=== PATIENT | male | born 1980 | race Caucasian/White ===

== ENCOUNTER 2023-12-24 14:04 | Emergency (ER) | payer OTHER, SELFPAY ==
[2023-12-24 14:11] VITALS: BP 130/91
[2023-12-24 14:54] LABS: Troponin I < 0.012 ng/ml
[2023-12-24 14:59] LABS: ALT (SGPT) 31 U/L (0-50); AST (SGOT) 29 U/L (17-59); Albumin 4.7 g/dl (3.5-5.0); Alkaline Phosphatase 50 U/L (38-126); Blood Urea Nitrogen 18 mg/dl (9-20); Calcium 9.7 mg/dl (8.4-10.2); Carbon Dioxide 26 mmol/L (22-30); Chloride 103 mmol/L (98-107); Glucose 103 mg/dl (70-99); Potassium 3.7 mmol/L (3.5-5.1); Sodium 138 mmol/L (135-145); Total Bilirubin 2.8 mg/dl (0.2-1.3); Total Protein 7.6 g/dl (6.3-8.2)
[2023-12-24 15:05] LABS: eGFR 55.17
[2023-12-24 16:25] VITALS: BP 139/84
[2023-12-24 16:40] VITALS: BMI 23.8
[2023-12-24 16:43] LABS: % Basophils 0.3 % (0-2); % Eosinophils 0.1 % (0-6); % Immature Granulocytes 0.3 % (0-0.5); % Monocytes 4.9 % (1.7-9.3); % Neutrophils 82.4 % (42.2-75.2); Absolute Lymphocytes 1.3 10^3/uL (1.2-3.4); Absolute Monocytes 0.5 10^3/uL (0.1-0.6); Absolute Neutrophils 8.9 10^3/uL (1.4-6.5); Hematocrit 42.6 % (39.0-52.0); Hemoglobin 15.2 g/dL (13.0-18.0); Mean Corp Hgb Conc. 35.7 g/dL (33.0-37.0); Mean Corpuscular Hgb 30.2 pg (27.0-31.0); Mean Corpuscular Volume 84.5 fL (80.0-94.0); Mean Platelet Volume 9.9 fL (7.4-10.4); Nucleated Red Blood Cells % 0 % (-); Platelet Count 279 10^3/uL (130-400); Red Blood Cell Count 5.04 10^6/uL (4.70-6.10); Red Cell Dist. Width 12.3 % (11.5-14.5); White Blood Cell Count 10.8 10^3/uL (4.8-10.8)
[2023-12-24 17:29] VITALS: BP 124/81
[2023-12-24 18:00] VITALS: BP 134/87
[2023-12-24 18:01] LABS: Troponin I < 0.012 ng/ml
--- NOTE | 2023-12-24 18:15 | ED.GENMED ---
History of Present Illness
General
Chief Complaint: Chest Pain
Source: patient and spouse
Time Seen by Provider: 12/24/23 16:06
History of Present Illness
History of Present Illness:
43-year-old male who presents after he developed chest pain palpitations at home. Does not that they took about this earlier and then it was delayed till he got the gym so he then took a 5-hour energy. He worked out without any problem. He then
got home and developed and experienced sharp chest pain just to the left of his lower sternum. He states he also had some palpitations and feeling his heart was racing. After getting a cold shower he developed the same sharp pain in his back. All
the symptoms last about 2 hours and resolved. He denies any symptoms while exercising. He states he did cardiac no as well as did weight lifting. The patient denies recent travel. No leg swelling or leg pain. No hemoptysis. No other injury.
No rash. Symptoms of all resolved. He states he has had some reflux in the past. He did have some belching but is not sure if it is GI related. Has a history of crews Parkinson's White that was treated in
Past History
Past History
ED Past Medical History: Other (WPW)
Social History
Tobacco: Non-smoker
Personal:
Family History
Family History: Negative Early CAD or Sudden
Phy Exam
Physical Exam
Physical Exam:
CONSTITUTIONAL Patient alert and oriented to person, place and time. Well-appearing. Vital signs reviewed.
HEAD atraumatic, normocephalic.
EYES eyelids normal to inspection, Extraocular muscles intact, Conjunctiva normal, Sclera normal.
NECK normal range of motion, Trachea midline, no jugular venous distention.
RESPIRATORY CHEST No respiratory distress noted, Chest expansion equal, Bilateral breath sounds clear.
CARDIOVASCULAR regular rate and rhythm, Heart sounds normal.
ABDOMEN abdomen nontender, Bowel sounds normal. No distention.
BACK normal inspection, no obvious deformities
UPPER EXTREMITY range of motion normal, Motor strength normal, no cyanosis, no edema.
LOWER EXTREMITY range of motion normal, Motor strength normal, no cyanosis, no edema.
NEURO Speech normal, No focal motor deficits, [place] coma scale 15, Memory normal, Cranial Nerves intact to screening exam.
SKIN skin warm, dry, and normal in color.
PSYCHIATRIC patient oriented to person place and time, Normal affect.
Scores
Heart Score for Chest Pain Patients
STEMI patient?: No
History: Slightly or Non-Suspicious
ECG: Normal
Age: </= 45 years
Risk Factors: No Risk Factors
Troponin: </= Normal Limit
Heart Score for Chest Pain Patients: 0
Heart Score Risk: 2.5% MACE over next 6 weeks
Course
Orders/Labs/Results
Orders:
Orders
12/24/23 14:06
EKG [Electrocardiogram (*1)] Urgent
Reason for Study: Chest Pain
EKG- Treatment ONCE
12/24/23 14:22
Comprehensive Metabolic Panel Urgent
Troponin I Urgent
12/24/23 16:31
CR Chest - 2 Views Urgent
Comment:
Reason For Exam: L cp
12/24/23 16:34
Complete Blood Count/With Diff Urgent
Troponin I Urgent
Abnormal Lab Results
12/24/23 12/24/23
14:22 16:34
Absolute Neuts (auto) 8.9 H 10^3/uL
(1.4-6.5)
Neutrophils % 82.4 H %
(42.2-75.2)
Lymphocytes % 12.0 L %
(20.5-51.1)
Creatinine 1.6 H mg/dL
(0.7-1.3)
Glucose 103 H mg/dl
(70-99)
Total Bilirubin 2.8 H mg/dl
(0.2-1.3)
12/24/23 16:34
12/24/23 14:22
Vital Signs
Initial and Last Documented VS:
Initial Vital Signs
Temp Pulse Resp BP Pulse Ox
98.1 F 95 18 130/91 97
12/24/23 14:11 12/24/23 14:11 12/24/23 14:11 12/24/23 14:11 12/24/23 14:11
Last Documented Vital Signs
Temp Pulse Resp BP Pulse Ox
98.1 F 76 14 134/87 97
12/24/23 14:11 12/24/23 18:00 12/24/23 18:00 12/24/23 18:00 12/24/23 18:00
MDM/Problems Addressed
MDM/Problems Addressed:
Atypical chest pain
*Radiology
Radiology exam reviewed: all reviewed NAD by ED Provider
*Pulse Oximetry
Patient hypoxic: no
*EKG
Interpreted by ED Provider?: Yes
Rate: normal
Rhythm: sinus
[place]: normal axis
Interval: normal interval
QRS Pattern: normal QRS
Ischemia: no ischemia
*Flight Coordinator Interpretation
Rate: normal
Interpretation: normal
Rhythm: sinus
*Critical Care Note
Total Time (30-74mins, 75-104mins- exclusive of procedures): Not Applicable
Data Reviewed
Source: patient
Prescriptions/Medications Considered But Not Given:
Consider nitroglycerin if pain has resolved a low suspicion for ACS
Patient Management
Escalation/DeEscalation of care consider admission/obs:
Patient appears quite well. Chest x-ray and EKG normal. Repeat troponin normal. Symptoms very atypical no symptoms with exercise. Recommended the avoidance of preworkout and advised outpatient follow-up
ED Attending Note
-
Portions of this chart may have been created with voice recognition software.� Occasional wrong word or��sound alike� substitutions may have occurred due to the inherent limitations of voice recognition software.
Discharge Plan
Departure
Patient Disposition: Home (Routine Discharge)
Date of Disposition: 12/24/23
Time of Disposition: 18:15
Patient with high blood pressure during this ER visit?: No
Discharge Problem:
Atypical chest pain
Instructions: Chest Pain DCA Follow Up
Referrals:
Shahzad Yoder MD [Family Provider] -
Activity Restrictions/Additional Instructions:
Please see cardiology in follow-up in the next 3 to 5 days. Return immediately for worsening symptoms, chest pain, shortness of breath, palpitations, weakness of any kind or any other concerns.
Interventions
Interventions:
*Risk Screen - Suicide Last Done: 12/24/23 14:11
*General Assessment Last Done: 12/24/23 16:41
*Neglect/Abuse Screening Last Done: 12/24/23 14:11
*ED COVID-19 Vaccine History Last Done: 12/24/23 14:11
ED- Cardiac Assessment Last Done: 12/24/23 16:41
Discharge Date and Time
Print Language: [id number]
[2023-12-24 18:37] VITALS: BP 134/87
== END 2023-12-24 18:38 | disposition home or self-care (01) ==
LOC: EMR 14:04
PROVIDERS: Emergency Medicine; EMERGENCY PHYSICIAN Emergency Medicine; FAMILY PHYSICIAN Internal Medicine
DX: R07.89 Other chest pain (principal); R00.2 Palpitations; I45.6 Pre-excitation syndrome; K21.9 Gastro-esophageal reflux disease without esophagitis
CPT/HCPCS: 99283; 71046; 80053; 84484; 85025; 93005

== ENCOUNTER → 2025-01-14 11:21 | Outpatient (REF) | payer OTHER, SELFPAY | LOC: RAD 11:21 | PROVIDERS: ATTENDING PHYSICIAN Internal Medicine | DX: E78.2 Mixed hyperlipidemia (principal) | CPT/HCPCS: 75571 ==